=== PATIENT | male | born 1940 | race Caucasian/White ===

== ENCOUNTER 2019-01-16 13:22 | Outpatient (CLI) | payer MEDICARE ==
--- NOTE | 2019-01-17 07:58 | PFT ---
PATIENT HISTORY: HEIGHT: 72 in WEIGHT: 182 lbs SMOKER: no HOW LONG: never PACKS PER DAY: PRODUCTIVE COUGH: no LUNG DISEASE: Asbestosis PHYSICIAN INTERPRETATION PFT data: 01/16/19 FEV1 and FVC are both mildly decreased. Total lung capacity is moderately decreased. DLCO is moderately decreased and does not correct for volume. IMPRESSION: This is a moderate restrictive impairment. Gas exchange is reduced. This is compactible with clinical diagnosis of asbestosis. Customer Support Consultant: LAURA Textile Designer: LAURA MARQUIS
== END 2019-01-16 13:23 | disposition home or self-care (01) ==
LOC: CP 13:22
PROVIDERS: ATTEND Internal Medicine Critical Care Medicine
DX: J61 Pneumoconiosis due to asbestos and other mineral fibers (principal)
CPT/HCPCS: 94010; 94727; 94729